=== PATIENT | female | born 1990 | race Caucasian/White ===

== ENCOUNTER 2017-01-22 18:41 | Emergency (ER) | payer BC ==
--- NOTE | 2017-01-22 20:02 | UC ---
Cardiac HPI - HPI Summary HPI Summary: Pt reports "chest Heaviness" upon waking this morning. Pt reports that the pain has now moved to RUchest, denies, chest pain, radiating jaw or arm pain. Denies SOB, cough or nausea. Pt reports that she has a history of asthma and seasonal allergies. pt also report that she has right scapular trigger point that has in the past has radiating pain to chest. - History of Current Complaint Chief Complaint: UCChestPain Stated Complaint: HEAVY CHEASTED (NO PAIN) Time Seen by Provider: 01/22/17 19:49 Hx Obtained From: Patient Onset/Duration: Sudden Onset, Lasting Hours, Still Present, Other - pain has improved Timing: Constant Initial Severity: Moderate Current Severity: Mild Chest Pain Location: Upper Sternal Character: Heaviness Aggravating: Deep Breaths Alleviating: Rest Associated Signs & Symptoms: Positive: Chest Pain - Risk Factors Pulmonary Embolism Risk Factors: Oral Contraceptives Cardiac Risk Factors: Negative Atrial Fibrillation: Negative TAD Risk Factors: Negative - Allergy/Home Medications Allergies/Adverse Reactions: Allergies Allergy/AdvReac Type Severity Reaction Status Date / Time Cefaclor [From [facility]] Allergy Rash Verified 01/22/17 19:36 Home Medications: Home Medications Drospirenone-Ethinyl Estradiol [Yelitza 3-0.02 mg] 1 tab PO DAILY 01/22/17 [History Confirmed 01/22/17] PMH/Surg Hx/FS Hx/Imm Hx Previously Healthy: Yes - Surgical History Surgical History: Yes Surgery Procedure, Year, and Place: [place] teeth - Family History Known Family History: Positive: Cardiac Disease - Social History Occupation: Employed Full-time Lives: With Family Alcohol Use: Rare Substance Use Type: None Smoking Status (MU): Never Smoked Tobacco Have You Smoked in the Last Year: No Review of Systems Constitutional: Negative Skin: Negative Eyes: Negative ENT: Negative Respiratory: Negative Cardiovascular: Chest Pain Gastrointestinal: Negative Genitourinary: Negative Motor: Negative Neurovascular: Negative Musculoskeletal: Negative Neurological: Negative Psychological: Negative Is Patient Immunocompromised?: No All Other Systems Reviewed And Are Negative: Yes Physical Exam Triage Information Reviewed: Yes Appearance: Well-Appearing Vital Signs: Initial Vital Signs Temp 99.1 F 01/22/17 19:32 Pulse 81 01/22/17 19:32 Resp 16 01/22/17 19:32 BP 129/71 01/22/17 19:32 Pulse Ox 100 01/22/17 19:32 Vital Signs Reviewed: Yes Eye Exam: Normal ENT Exam: Normal Neck exam: Normal Respiratory Exam: Normal Cardiovascular Exam: Normal Musculoskeletal Exam: Normal Neurological Exam: Normal Psychological Exam: Normal Skin Exam: Normal - Assessment/Plan Course Of Treatment: I discussed withthe pt need to monitor symptoms and if they worsen to seek care immediately. Pt verbalized understanding and agreed to plan of care. - Differential Diagnoses - Chest Pain Differential Diagnosis/HQI/PQRI: Pulmonary Embolism - Differential Diagnoses - Hypertension Differential Diagnosis/HQI PQRI: Angina - Clinical Impression Provider Diagnoses: chest pain Discharge - Discharge Plan Condition: Stable Disposition: HOME Patient Education Materials: Chest Pain (ED) Referrals: Victor Manuel Stringer MD [Primary Care Provider] - If Needed Additional Instructions: Please follow up with your PCP or return to clinic as needed. If your symptoms worsen please seek care at the closest emergency department.
== END 2017-01-22 20:12 | disposition home or self-care (01) ==
LOC: UCCORT 18:41
DX: R07.9 Chest pain, unspecified (principal); I10 Essential (primary) hypertension; Z88.1 Allergy status to other antibiotic agents
CPT/HCPCS: 99201; G0463

== ENCOUNTER 2018-01-19 19:22 | Emergency (ER) | payer BC ==
[2018-01-19 21:27] VITALS: BP 106/69
[2018-01-19] MEDS ORDERED: Amoxicillin PO (*) 500 MG CAP PO ONE (21:55)
--- NOTE | 2018-01-19 22:00 | UC ---
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 He denies any fever. She has no cough or URI symptoms. - History of Current Complaint Chief Complaint: UCRespiratory Stated Complaint: SORE THROAT Time Seen by Provider: 01/19/18 21:42 Hx Obtained From: Patient Hx Last Menstrual Period: 01/12/18 Onset/Duration: Gradual Onset, Lasting Hours Severity: Mild Pain Intensity: 4 Pain Scale Used: 0-10 Numeric Associated Signs & Symptoms: Positive: Negative - Epiglottits Risk Factors Epiglottis Risk Factors: Negative - Allergies/Home Medications Allergies/Adverse Reactions: Allergies Allergy/AdvReac Type Severity Reaction Status Date / Time cefaclor [From Ceclor] Allergy Unknown Rash Verified 01/19/18 21:21 Home Medications: Home Medications Diphenhydra/Phenyleph/Acetamin [Cold & Flu Relief Multi-S 12.5-5-325 mg/10Ml] 1 liq PO PRN 01/19/18 [History] PMH/Surg Hx/FS Hx/Imm Hx Previously Healthy: Yes - Surgical History Surgical History: Yes Surgery Procedure, Year, and Place: [place] teeth. SKIN BIOPSIES - Family History Known Family History: Positive: Cardiac Disease - Social History Alcohol Use: Rare Substance Use Type: None Smoking Status (MU): Never Smoked Tobacco Have You Smoked in the Last Year: No Review of Systems Constitutional: Negative Skin: Negative Eyes: Negative ENT: Sore Throat Respiratory: Negative Cardiovascular: Negative Gastrointestinal: Negative Genitourinary: Negative Motor: Negative Neurovascular: Negative Musculoskeletal: Negative Neurological: Negative Psychological: Negative Is Patient Immunocompromised?: No All Other Systems Reviewed And Are Negative: Yes Physical Exam Triage Information Reviewed: Yes Appearance: Well-Appearing, No Pain Distress, Well-Nourished Vital Signs: Initial Vital Signs Temp 98.4 F 01/19/18 21:22 Pulse 71 01/19/18 21:22 Resp 18 01/19/18 21:22 BP 106/69 01/19/18 21:22 Pulse Ox 99 01/19/18 21:22 Vital Signs Reviewed: Yes Eyes: Positive: Conjunctiva Clear ENT: Positive: Hearing grossly normal, Pharyngeal erythema, Tonsillar swelling, Tonsillar exudate, Uvula midline. Negative: Nasal congestion, Nasal drainage, Trismus, Muffled voice, Hoarse voice, Dental tenderness, Sinus tenderness Dental Exam: Normal Neck: Positive: Supple, Nontender, Enlarged Nodes @ - ant cerv Respiratory: Positive: Lungs clear, Normal breath sounds, No respiratory distress, No accessory muscle use Cardiovascular: Positive: RRR, No Murmur Musculoskeletal: Positive: ROM Intact, No Edema Neurological: Positive: Alert Psychological Exam: Normal Skin Exam: Normal Diagnostics - Laboratory Diagnostic Studies Completed/Ordered: Strep (-) Throat Pain/Nasal Course/Dx - Differential Dx/Diagnosis Provider Diagnoses: strep throat Discharge - Sign-Out/Discharge Documenting (check all that apply): Patient Departure All imaging exams completed and their final reports reviewed: No Studies - Discharge Plan Condition: Stable Disposition: HOME Prescriptions: Amoxicillin PO (*) [Amoxicillin 875 MG (*)] 875 mg PO BID #20 tab Patient Education Materials: Strep Throat (DC) Forms: *Work Release Referrals: Victor Manuel Stringer MD [Primary Care Provider] - 4 Days (if not better) - Billing Disposition and Condition Condition: STABLE Disposition: Home
== END 2018-01-19 22:09 | disposition home or self-care (01) ==
LOC: UCCORT 19:22
DX: J02.0 Streptococcal pharyngitis (principal); Z88.1 Allergy status to other antibiotic agents
CPT/HCPCS: 87651; 99212; A9270-GY; G0463